=== PATIENT | female | born 1995 ===

== ENCOUNTER 2017-02-27 21:18 | Emergency (ER) | payer MEDICAID ==
[2017-02-27] MEDS ORDERED: Ibuprofen TAB* 600 MG PO ONE (22:16)
[2017-02-27] MEDS ORDERED: Cyclobenzaprine TAB* 10 MG PO ONE (22:16)
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
[2017-02-27 22:59] VITALS: BP 126/77
== END 2017-02-27 22:40 | disposition home or self-care (01) ==
LOC: ED 21:18
DX: S30.0XXA Contusion of lower back and pelvis, initial encounter (principal); V43.62XA Car passenger injured in collision with other type car in traffic accident, initial encounter; Y92.410 Unspecified street and highway as the place of occurrence of the external cause
CPT/HCPCS: 99282; A9270-GY